=== PATIENT | female | born 2005 | race Caucasian/White ===

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

== ENCOUNTER 2025-02-28 11:04 | Emergency (ER) | payer BC, SELFPAY ==
[2025-02-28 11:10] VITALS: BP 105/61
[2025-02-28] MEDS: OMNIPAQUE 50 ML PO (12:56)
--- NOTE | 2025-02-28 12:59 | ED.GENMED ---
History of Present Illness
General
Chief Complaint: Abdominal Symptoms
Source: patient
Exam Limitations: none
Time Seen by Provider: 02/28/25 12:20
Nursing documentation reviewed up to this point in time: agreed with
History of Present Illness
History of Present Illness:
19-year-old female who presents to the emergency department with 3 days of abdominal pain, now with vomiting and diarrhea. She states that abdominal pain began on Sunday after eating breakfast. Pain seemed to intermittent over the past few days
and was throughout her lower abdomen. No radiation of pain into her back. She reports that starting this morning she has had multiple episodes of vomiting and nonbloody diarrhea. She denies any known fever.
No dysuria or hematuria. She denies any other viral symptoms or known sick contacts.
LMP was approximately 1 month ago.
Patient has no past history of abdominal surgeries. She has had a past ovarian cyst however states this pain is much higher up in her abdomen.
Review of Systems
Review of Systems
Allergies reviewed?: Yes
All Other Systems: ROS reviewed and negative except as documented in HPI and ROS
Phy Exam
Physical Exam
Physical Exam:
Vitals: Patient's vital signs are stable Afebrie
General: Patient is well appearing, no acute distress
Skin: Warm and dry, no rashes or lesions
Head: Normocephalic, atraumatic
Eyes: Sclera nonicteric.
Throat: Protecting airway
Neck: Normal ROM, no cervical spine tenderness, no meningismus
Cardiac: Regular rate and rhythm, no murmurs.
Pulm: Normal respiratory effort, no wheezes, rales, rhonchi heard on exam
.
Abdomen: Abdomen soft. Mild tenderness in lower abdomen. No rebound tenderness or guarding. No focal tenderness at McBurney's point. Negative Mcguire sign. No CVA tenderness
Extremities: No evidence of cyanosis or edema
Neuro: AAOx3. Grossly intact.
Psychiatric: Normal affect.
Course
Orders/Labs/Results
Orders:
Orders
02/28/25 12:39
0.9% Sodium Chloride 1000 ml [Nss] 1,000 ml IV BOLUS
Ketorolac [Toradol] 15 mg IV NOW STA
Ondansetron Injectable [Zofran] 4 mg IV NOW STA
02/28/25 12:41
CT Abd/pel W Iv And Oral Contr Urgent
Comment:
Reason For Exam: RLQ pain
Iohexol [Omnipaque] See Protocol PO NOW STA
Test Result ONCE
02/28/25 13:03
Complete Blood Count/With Diff Urgent
Comprehensive Metabolic Panel Urgent
HCG, Serum Qualitative Screen Urgent
Lipase Urgent
02/28/25 14:30
Urinalysis Reflex To Culture Urgent
Date Specimen was Collected: 02/28/25
Time Specimen was Collected: 14:26
Abnormal Lab Results
02/28/25
13:03
WBC 14.5 H 10^3/uL
(4.8-10.8)
Abs Immat Gran (auto) 0.1 H 10^3/uL
(0-0.05)
Absolute Neuts (auto) 13.2 H 10^3/uL
(1.4-6.5)
Absolute Lymphs (auto) 0.4 L 10^3/uL
(1.2-3.4)
Absolute Monos (auto) 0.7 H 10^3/uL
(0.1-0.6)
Immature Gran % 0.6 H %
(0-0.5)
Neutrophils % 91.2 H %
(42.2-75.2)
Lymphocytes % 2.8 L %
(20.5-51.1)
Chloride 108 H mmol/L
(98-107)
Carbon Dioxide 21 L mmol/L
(22-30)
Alkaline Phosphatase 36 L U/L
(38-126)
02/28/25 13:03
02/28/25 13:03
Vital Signs
Initial and Last Documented VS:
Initial Vital Signs
Pulse Resp BP Pulse Ox
75 16 105/61 98
02/28/25 11:10 02/28/25 11:10 02/28/25 11:10 02/28/25 11:10
Last Documented Vital Signs
Temp Pulse Resp BP Pulse Ox
98.5 F 63 16 104/53 100
02/28/25 14:49 02/28/25 16:29 02/28/25 16:29 02/28/25 16:29 02/28/25 16:29
MDM/Problems Addressed
Differential Diagnosis Includes:
Not limited to: Viral gastroenteritis, mesenteric adenitis, appendicitis, colitis, biliary colic, etc.
MDM/Problems Addressed:
19-year-old female presenting with three days of intermittent abdominal discomfort now with vomiting and diarrhea. No fever or anorexia. No urinary symptoms. No known sick contacts.
Vitals and physical exam as above. Patient well appearing, nontoxic. Abdomen is soft with mild tenderness in lower abdomen, no rebound tenderness or guarding. No focal tenderness at McBurneys point. No pelvic pain.
Differential broad. Possible viral illness vs adenitis vs appendicitis. Given location of pain � do not suspect pelvic etiology, exam not consistent with ovarian torsion.
ED plan: labs, urinalysis, CT scan abdomen/pelvis with PO and IV contrast. Will give Toradol, fluids, Zofran, and reassess.
Update: labs reveal leukocytosis. Otherwise chemistry unremarkable. Urine does not appear infected. CT scan shows normal appendix without any other evidence of acute intra-abdominal /pelvic pathology.
Work up in ED negative. Patient remains well appearing and in no distress. Ultimately � suspect likely viral gastroenteritis. She has not had any diarrhea in department to collect stool sample. Leukocytosis likely reactive from vomiting. No
indication for abx.
Will discharge home with instructions for supportive care, primary care follow up. Strict return precautions discussed.
Chronic conditions affecting care:
N/A
Acute Exacerbation and/or Progression of Chronic Illness:
N/A
*Radiology
Radiology exam reviewed: radiology read reviewed
*Pulse Oximetry
SaO2: 98
Oxygen Mode of Delivery: Room air
Patient hypoxic: no
*EKG
Interpreted by ED Provider?: NA
*Grounds Manager Interpretation
Rate: Grounds Manager- N/A
*Critical Care Note
Total Time (30-74mins, 75-104mins- exclusive of procedures): Not Applicable
ED Attending Note
-
Portions of this chart may have been created with voice recognition software.� Occasional wrong word or��sound alike� substitutions may have occurred due to the inherent limitations of voice recognition software.
Discharge Plan
Departure
Patient Disposition: Home (Routine Discharge)
Date of Disposition: 02/28/25
Time of Disposition: 16:17
Patient with high blood pressure during this ER visit?: No
Condition: Good
Discharge Problem:
Nausea, vomiting and diarrhea, Abdominal pain
Instructions: Nausea and Vomiting, Adult (DC), Abdominal Pain
Prescriptions:
New
ondansetron 4 mg tablet,disintegrating
4 mg PO Q8H PRN (Reason: nausea and vomiting) Qty: 5 0RF
Referrals:
Zoya Conner NP [Family Provider, Internal Medicine] - Follow up in 5-7 days
Activity Restrictions/Additional Instructions:
RETURN TO THE EMERGENCY DEPARTMENT WITH ANY FEVERS, PERSISTENT/WORSENING ABDOMINAL PAIN, PERSISTENT LACK OF APPETITE, INTRACTABLE NAUSEA/VOMITING, WORSENING IN CURRENT SYMPTOMS, OR ANY OTHER SYMPTOMS CONCERNING TO YOU
- As discussed�the CT scan showed a normal appendix. Your lab work did reveal an elevated white blood cell count, however was otherwise unremarkable.
- Please stay well-hydrated at home. I would follow a bland diet over the next few days and slowly advance as tolerated. You can take Tylenol and/or Motrin as needed for pain. A prescription for Zofran has been sent to your pharmacy for any
persistent nausea.
- Please follow-up with primary care for further evaluation/management to ensure that your symptoms are improving
Monitor your symptoms closely and return to the emergency department with any acute worsening/new symptoms or any other concerns
Interventions
Interventions:
*Risk Screen - Suicide Last Done: 02/28/25 11:10
*General Assessment Last Done: 02/28/25 12:58
*Neglect/Abuse Screening Last Done: 02/28/25 11:10
*ED- Fall Risk Assessment Last Done: 02/28/25 12:58
*ED COVID-19 Vaccine History Last Done: 02/28/25 12:58
*Nursing Disposition Last Done: 02/28/25 16:31
QT-Gilgqq-Myaqepjbcy Assessment Last Done: 02/28/25 13:25
Discharge Date and Time
Discharge Date/Time: 02/28/25 16:32
Print Language: BURKINAN
[2025-02-28] MEDS: TORADOL 15 MG IV (13:04)
[2025-02-28] MEDS: NSS 1000 IV (13:04)
[2025-02-28] MEDS: ZOFRAN 4 MG IV (13:04)
[2025-02-28 13:16] LABS: Hematocrit 42.2 % (37.0-47.0); Hemoglobin 14.0 g/dL (12.0-16.0); Mean Corp Hgb Conc. 33.2 g/dL (33.0-37.0); Mean Corpuscular Volume 86.7 fL (81.0-99.0); Nucleated Red Blood Cells % 0 %; Platelet Count 323 10^3/uL (130-400); Red Cell Dist. Width 13.2 % (11.5-14.5)
[2025-02-28 13:31] LABS: ALT (SGPT) 15 U/L (0-35); AST (SGOT) 19 U/L (14-36); Albumin 4.6 g/dl (3.5-5.0); Alkaline Phosphatase 36 U/L (38-126); Blood Urea Nitrogen 16 mg/dl (7-17); Calcium 9.4 mg/dl (8.4-10.2); Carbon Dioxide 21 mmol/L (22-30); Chloride 108 mmol/L (98-107); Glucose 94 mg/dl (70-99); Lipase 64 U/L (23-300); Potassium 4.6 mmol/L (3.5-5.1); Sodium 137 mmol/L (135-145); Total Protein 8.0 g/dl (6.3-8.2); eGFR > 60.00
[2025-02-28 13:32] LABS: HCG, Serum Qualitative Screen Negative
[2025-02-28 14:37] LABS: Urine Character Clear (Clear)
[2025-02-28 14:49] VITALS: BP 93/66
[2025-02-28 16:29] VITALS: BP 104/53
== END 2025-02-28 16:32 | disposition home or self-care (01) ==
LOC: EMR 11:04
PROVIDERS: Physician Assistant; EMERGENCY PHYSICIAN Emergency Medicine; FAMILY PHYSICIAN Internal Medicine
DX: R11.2 Nausea with vomiting, unspecified (principal); R19.7 Diarrhea, unspecified; R10.9 Unspecified abdominal pain; D72.829 Elevated white blood cell count, unspecified
CPT/HCPCS: 99284; 96374; 96375; 96361; 74177; 80053; 81003; 83690; 84703; 85025; Q9967